=== PATIENT | male | born 1995 | race Caucasian/White ===

== ENCOUNTER → 2019-11-20 | Outpatient (CLI) | payer OTHER ==
[~2019-11-20] MED LIST: IBUP600 PO; METO10 PO
[2019-11-22 19:08] LABS: CHLAMYDIA TRACHOMATIS, NAA Negative (Negative); NEISSERIA GONORRHOEAE, NAA Negative (Negative)
== END | disposition home or self-care (01) ==
LOC: LAB 15:00 → LAB SHORT 15:00
PROVIDERS: Emergency Medicine
DX: N34.1 Nonspecific urethritis (principal)
CPT/HCPCS: 87491; 87591